=== PATIENT | male | born 1995 | race African-American/Black ===

== ENCOUNTER 2018-06-11 21:47 | Emergency (ER) | payer SELFPAY ==
[~2018-06-11] VITALS: Ht 182.9 cm; Wt 63.5 kg
[2018-06-11 22:05] VITALS: BP 134/66
--- NOTE | 2018-06-11 22:08 | NUR ---
Duong ríos in ED - 06/11/18 at 2210 by [facility] PT TO ER BED 3
--- NOTE | 2018-06-11 22:08 | NUR ---
PT TO ER BED 1
--- NOTE | 2018-06-11 22:56 | NUR ---
PT PRESENTS TO ED WITH C/O NAUSEA AND VOMITTING. ABD IS SOFT, NON TENDER. PT REPORTS A PREVIOUS VISIT TO ANOTHER ER AND STAFF AT ER WANTED TO ADMIT PT DUE TO LEUKOCYTOSIS, PER PT "I DIDNT HAVE TIME TO STAY THERE, BUT IM STILL VOMITTING SO I CAME HERE" PT PLACED INTO BED, PENDING MD ORTEGA. VSS. NO S/S OF DISTRESS.
[2018-06-11] MEDS ORDERED: ONDANSETRON 4 MG/2 ML VIAL IVP ONE (23:35)
[2018-06-11] MEDS ORDERED: NACL 0.9% 1,000 ML IV ONE (23:35)
[2018-06-12 00:07] LABS: BASOPHILS % (AUTO) 0.1 % (0.0-2.0); EOSINOPHILS # (AUTO) 0.1 K/uL (0-0.4); EOSINOPHILS % (AUTO) 0.7 % (0.0-4.0); HEMATOCRIT 40.3 % (36-52); HEMOGLOBIN 12.8 g/dL (12.0-18.0); LYMPHOCYTES # (AUTO) 1.4 K/uL (2.0-11.5); LYMPHOCYTES % (AUTO) 10.1 % (20.5-51.1); MEAN CORPUSCULAR HEMOGLOBIN 26 pg (27-31); MEAN CORPUSCULAR HGB CONC 32 g/dL (33-37); MEAN CORPUSCULAR VOLUME 82.6 fL (80-94); MONOCYTES # (AUTO) 1.1 K/uL (0.8-1.0); NEUTROPHILS # (AUTO) 11.5 K/uL (1.8-7.7); NEUTROPHILS % (AUTO) 81.1 % (42.2-75.2); PLATELET COUNT (AUTO) 302 K/uL (140-450); RED BLOOD CELL COUNT(AUTO) 4.87 MIL/uL (4.20-6.10); RED CELL DISTRIBUTION WIDTH 14.7 % (11.6-13.7); WHITE BLOOD COUNT (AUTO) 14.2 K/uL (4.8-10.8)
[2018-06-12 00:19] LABS: CARBON DIOXIDE 31.5 mmol/L (21-32); CREATININE 0.8 mg/dL (0.7-1.3); POTASSIUM 3.5 mmol/L (3.5-5.1)
[2018-06-12 00:25] LABS: ALBUMIN 3.9 g/dL (3.4-5.0); TOTAL BILIRUBIN 0.7 mg/dL (0.0-1.0)
[2018-06-12 00:47] VITALS: BP 129/88
== END 2018-06-12 00:47 | disposition home or self-care (01) ==
LOC: MED 21:47
DX: A08.4 Viral intestinal infection, unspecified (principal); Z88.0 Allergy status to penicillin; Z88.2 Allergy status to sulfonamides; Z90.49 Acquired absence of other specified parts of digestive tract
CPT/HCPCS: 36415; 74022; 80053; 83690; 85025; 96361; 96374; 99284; J2405; J7030